=== PATIENT | female | born 1975 | race Asian ===

== ENCOUNTER 2021-04-10 06:37 | Emergency (ER) | payer OTHER ==
[~2021-04-10] VITALS: Ht 157.5 cm; Wt 74.4 kg
[2021-04-10 06:58] VITALS: BP 166/58; TEMP 97.1
[2021-04-10 07:57] LABS: PLATELET COUNT 660 K/uL (152-353)
[2021-04-10 07:58] LABS: POTASSIUM 3.8 mmol/L (3.6-5.2)
== END 2021-04-10 08:15 | disposition home or self-care (01) ==
LOC: ED 06:37
PROVIDERS: Emergency Medicine
DX: D50.8 Other iron deficiency anemias (principal); N92.0 Excessive and frequent menstruation with regular cycle; L85.3 Xerosis cutis
CPT/HCPCS: 80048; 85027; 96372; 99283; J1100

== ENCOUNTER 2021-06-06 14:38 | Outpatient (CLI) | payer OTHER | END 2021-06-06 19:07 | disposition home or self-care (01) | LOC: MRI 14:38 | PROVIDERS: ATTEND Nurse Practitioner Family | DX: M50.30 Other cervical disc degeneration, unspecified cervical region (principal) ==